=== PATIENT | male | born 1960 | race American Indian/Alaskan Native ===

== ENCOUNTER 2017-11-18 17:35 | Emergency (ER) | payer BC, MEDICAID ==
[2017-11-18 17:41] VITALS: BP 164/93; PULSE 82; RESP 20; TEMP 98.7; O2SAT 99
--- NOTE | 2017-11-18 17:59 | C.PDOC ---
History Of Present Illness 57 year old male presents to the ED for evaluation of right eye injury which he sustained 3 days ago. Patient states he accidentally struck his right eye area and now has increased redness on the eye and orbital swelling. Denies eye pain, vision change, double vision or any other associated symptoms. R EYE INJURY 3 DAYS AGO. PS ACCID STRUCK R EYE AREA NOW W INCR REDNESS ON EYE AND ORBITAL SWELLING. DENIES EYE PAIN, VISION CHANGE, DOUBLE VISION, OTHER ASSOC SX. EXAM NAD HEENT R EYE +SUBCONJ HEMORRHAGE NO HYPHEMA PERRLA; EOMI; +PERIORB HEMATOMA NO SUBCUT CREPITUS SKIN INTACT NO ERYTHEMA Time Seen by Provider: 11/18/17 17:44 Chief Complaint (Nursing): Eye Problem History Per: Patient History/Exam Limitations: no limitations Onset/Duration Of Symptoms: Days (3) Current Symptoms Are (Timing): Still Present Injury To Eye?: Yes Associated Symptoms: Swelling, Other (redness). denies: Pain, Decreased Vision Additional History Per: Patient Past Medical History Reviewed: Historical Data, Nursing Documentation, Vital Signs Vital Signs: Last Vital Signs Temp 98.7 F 11/18/17 17:38 Pulse 82 11/18/17 17:38 Resp 20 11/18/17 17:38 BP 164/93 H 11/18/17 17:38 Pulse Ox 99 11/18/17 17:59 - Medical History PMH: HTN Surgical History: No Surg Hx Family History: States: Unknown Family Hx - Social History Hx Alcohol Use: Yes Hx Substance Use: No - Immunization History Hx Tetanus Toxoid Vaccination: No Hx Influenza Vaccination: Yes Hx Pneumococcal Vaccination: No Review Of Systems Eyes: Positive for: Other (right eye injury ). Negative for: Pain, Vision Change Physical Exam - Physical Exam Appears: Non-toxic, No Acute Distress Skin: Normal Color, Warm, Dry, No Other (erythema ) Head: Other (periorbital hematoma. no subcutaneous crepitus ) Eye(s): bilateral: PERRL, EOMI, right: Other (subconjunctival hemorrhage. no hyphema), left: Normal Inspection Oral Mucosa: Moist Neck: Supple Extremity: Normal ROM, Capillary Refill (less than 2 seconds ) Neurological/Psych: Oriented x3, Normal Speech, Normal Cognition ED Course And Treatment O2 Sat by Pulse Oximetry: 99 (on RA) Pulse Ox Interpretation: Normal Disposition Counseled Patient/Family Regarding: Diagnosis, Need For Followup - Disposition Referrals: Seth Lala [Staff Provider] - Disposition: HOME/ ROUTINE Disposition Time: 17:58 Condition: GOOD Instructions: Subconjunctival Hemorrhage Forms: [facility] (Danish) - Clinical Impression Clinical Impression: Periorbital hematoma, Subconjunctival hematoma - Scribe Statement The provider has reviewed the documentation as recorded by the Scribe (Hiwot Saenz) Provider Attestation: All medical record entries made by the Scribe were at my direction and personally dictated by me. I have reviewed the chart and agree that the record accurately reflects my personal performance of the history, physical exam, medical decision making, and the department course for this patient. I have also personally directed, reviewed, and agree with the discharge instructions and disposition.
== END 2017-11-18 18:04 | disposition home or self-care (01) ==
LOC: C.ER 17:35
DX: H11.31 Conjunctival hemorrhage, right eye (principal); S00.11XA Contusion of right eyelid and periocular area, initial encounter; W22.8XXA Striking against or struck by other objects, initial encounter; I10 Essential (primary) hypertension

== ENCOUNTER 2017-12-31 15:40 | Emergency (ER) | payer OTHER ==
[2017-12-31 16:36] VITALS: O2SAT 98
--- NOTE | 2017-12-31 17:58 | RAD ---
Left knee three views History: Injury. Comparison: None available. Findings: Extensive subcutaneous air and emphysematous changes within the medial soft tissues of the left knee extending into the left thigh more proximally. Vertically oriented curvilinear radiopaque density seen within the medial soft tissues at the level of the knee joint, nonspecific. Clinical correlation. Small rounded radiopaque density seen projecting over the lateral compartment of the femorotibial joint space which may represent loose osteochondral body. Small suprapatellar joint effusion. Heterotopic bone formation at the anterior tibial tubercle. Moderate medial compartment joint space narrowing of the femorotibial joint space. Punctate radiopaque density adjacent to the lateral femoral condyle which may represent an accessory ossicle. Impression: Extensive subcutaneous air and emphysematous changes within the medial soft tissues of the left knee extending into the left thigh more proximally. Clinical correlation. Vertically oriented curvilinear radiopaque density seen within the medial soft tissues at the level of the knee joint, nonspecific. Clinical correlation. Small rounded radiopaque density seen projecting over the lateral compartment of the femorotibial joint space which may represent loose osteochondral body. Small suprapatellar joint effusion. Heterotopic bone formation at the anterior tibial tubercle. Moderate medial compartment joint space narrowing of the femorotibial joint space. Punctate radiopaque density adjacent to the lateral femoral condyle which may represent an accessory ossicle. If pain persists, consider MRI.
[2017-12-31] MEDS ORDERED: Bacitracin 500 Units/gm Oint Foilpak UD TOP STA (18:08)
[2017-12-31] MEDS ORDERED: Lidocaine 1% w Epi 1:100,000 Inj INJ STA (18:08)
[2017-12-31] MEDS ORDERED: Tetanus/Diphtheria Toxoids 0.5 ml Syringe IM ONE ×2 (18:11→19:20)
[2017-12-31] MEDS ORDERED: Bacitracin 500 Units/gm Oint Foilpak UD ONE (18:21)
--- NOTE | 2017-12-31 19:02 | C.PDOC ---
History Of Present Illness Patient is a 57 y/o male who presents to the ED with a complaint of left knee pain s/p work injury. 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 Patient denies any other physical complaints at this time. Time Seen by Provider: 12/31/17 17:00 Chief Complaint (Nursing): Abnormal Skin Integrity History Per: Patient History/Exam Limitations: no limitations Onset/Duration Of Symptoms: Hrs Current Symptoms Are (Timing): Still Present Location Of Injury: Left: Knee Quality Of Symptoms: Painful Recent travel outside of the [place]: No Past Medical History Reviewed: Historical Data, Nursing Documentation, Vital Signs Vital Signs: Last Vital Signs Temp 98.2 F 12/31/17 19:51 Pulse 73 12/31/17 19:51 Resp 20 12/31/17 19:51 BP 103/71 12/31/17 19:51 Pulse Ox 98 12/31/17 20:56 - Medical History PMH: HTN, Hypercholesterolemia Surgical History: No Surg Hx Family History: States: No Known Family Hx - Social History Hx Tobacco Use: Yes (light smoker) Hx Alcohol Use: Yes Hx Substance Use: No - Immunization History Hx Tetanus Toxoid Vaccination: No Hx Influenza Vaccination: Yes Hx Pneumococcal Vaccination: No Review Of Systems Musculoskeletal: Positive for: Leg Pain (left knee pain) Skin: Positive for: Other (two lacerations to medial aspect of left knee) Physical Exam - Physical Exam Appears: No Acute Distress Skin: Other (first laceration to medial aspect of left knee approximately 2cm in length, deep laceration, active bleeding; second laceration on medial aspect of left knee approximately 3.5cm in length, more superficial) Head: Atraumatic, Normacephalic Oral Mucosa: Moist Extremity: No Normal ROM (limited secondary to pain ), Tenderness (tender to left knee), No Deformity Neurological/Psych: Oriented x3, Normal Speech, Normal Cognition Gait: Unsteady (limping) ED Course And Treatment O2 Sat by Pulse Oximetry: 98 - Other Rad Left knee XR X-Ray: Interpreted by Me, Viewed By Me Interpretation: Left knee three views. History: Injury. Comparison: None available. Findings: Extensive subcutaneous air and emphysematous changes within the medial soft tissues of the left knee extending into the left thigh more proximally. Vertically oriented curvilinear radiopaque density seen within the medial soft tissues at the level of the knee joint, nonspecific. Clinical correlation. Small rounded radiopaque density seen projecting over the lateral compartment of the femorotibial joint space which may represent loose osteochondral body. Small suprapatellar joint effusion. Heterotopic bone formation at the anterior tibial tubercle. Moderate medial compartment joint space narrowing of the femorotibial joint space. Punctate radiopaque density adjacent to the lateral femoral condyle which may represent an accessory ossicle. Impression: Extensive subcutaneous air and emphysematous changes within the medial soft tissues of the left knee extending into the left thigh more proximally. Clinical correlation. Vertically oriented curvilinear radiopaque density seen within the medial soft tissues at the level of the knee joint, nonspecific. Clinical correlation. Small rounded radiopaque density seen projecting over the lateral compartment of the femorotibial joint space which may represent loose osteochondral body. Small suprapatellar joint effusion. Heterotopic bone formation at the anterior tibial tubercle. Moderate medial compartment joint space narrowing of the femorotibial joint space. Punctate radiopaque density adjacent to the lateral femoral condyle which may represent an accessory ossicle. If pain persists, consider MRI. Progress Note: Bacitracin cream administered. Non-strick dressing and a strap applied to left knee. Patient stable for discharge and currently on crutches; discharge instructions discussed with patient. Percocet and NSAIDs IM 1g given upon discharge. Laceration - Laceration Repair medial aspect of left knee Wound Length (In cm): 3.5 Description Of Wound: Linear Anesthesia: Lidocaine 2%, With Epi Wound Examination: No FB With Wound Exploration Wound Closure: Suture (8) Suture Technique And Material Used: Nylon (4-0) Wound Complexity: Simple medial aspect of left knee Wound Length (In cm): 2 Description Of Wound: Linear Wound Examination: No FB With Wound Exploration Wound Closure: Suture (2 4-0 proline sutures to SQ, 5 3-0 nylone sutures to skin ) Suture Technique And Material Used: Interrupted, Nylon (3.0 first layer, 4.0 second layer) Wound Complexity: Intermediate Disposition - Disposition Referrals: Damian Gold MD [Staff Provider] - Kenneth Mendieta III, MD [Staff Provider] - Disposition: HOME/ ROUTINE Disposition Time: 19:21 Condition: STABLE Additional Instructions: Follow up with your PMD and Orthopedist within 2-3 days. Return to ED immediately if feel worse. Prescriptions: Bacitracin OINT 1 applic TP TID #45 g Cephalexin [cephalexin] 500 mg PO Q6 #28 cap Ibuprofen [Motrin Tab] 600 mg PO Q8 #30 tab Instructions: Laceration Repair With Stitches (DC), Knee Pain (DC) Forms: [facility] (Kittitian), Work Excuse - Clinical Impression Clinical Impression: Knee contusion, Laceration of knee - Scribe Statement The provider has reviewed the documentation as recorded by the Scribe Elyse Govea All medical record entries made by the Scribe were at my direction and personally dictated by me. I have reviewed the chart and agree that the record accurately reflects my personal performance of the history, physical exam, medical decision making, and the department course for this patient. I have also personally directed, reviewed, and agree with the discharge instructions and disposition.
[2017-12-31] MEDS ORDERED: Oxycodone/Acetaminophen 5/325 mg Tab PO STA (19:21)
[2017-12-31] MEDS ORDERED: Oxycodone/Acetaminophen 5/325 mg Tab ONE (19:31)
[2017-12-31 19:52] VITALS: BP 103/71; PULSE 73; RESP 20; TEMP 98.2
== END 2017-12-31 20:19 | disposition home or self-care (01) ==
LOC: C.ER 15:40
DX: S81.012A Laceration without foreign body, left knee, initial encounter (principal); W31.82XA Contact with other commercial machinery, initial encounter; Y92.89 Other specified places as the place of occurrence of the external cause; Y99.0 Civilian activity done for income or pay; Z23 Encounter for immunization
CPT/HCPCS: 12032; 73562; 90471; 90714; 96372; 99284; J0690